=== PATIENT | male | born 1965 | race Caucasian/White ===

== ENCOUNTER 2019-06-25 00:20 | Emergency (ER) | payer OTHER ==
[~2019-06-25] VITALS: Ht 170.2 cm; Wt 84.1 kg
[2019-06-25 00:25] VITALS: BP 156/89
== END 2019-06-25 01:53 | disposition home or self-care (01) ==
LOC: ER 00:21
DX: T63.441A Toxic effect of venom of bees, accidental (unintentional), initial encounter (principal); Y92.89 Other specified places as the place of occurrence of the external cause
CPT/HCPCS: 99281